=== PATIENT | female | born 1970 | race Caucasian/White ===

== ENCOUNTER 2018-07-09 14:31 | Outpatient (CLI) | payer OTHER | END 2018-07-09 14:32 | disposition home or self-care (01) | LOC: BICMAMMO 14:31 | PROVIDERS: ATTEND Family Medicine | DX: R92.0 Mammographic microcalcification found on diagnostic imaging of breast (principal); R92.1 Mammographic calcification found on diagnostic imaging of breast | CPT/HCPCS: G0279 ==

== ENCOUNTER 2018-07-23 09:29 | Outpatient (CLI) | payer OTHER ==
--- NOTE | 2018-07-23 11:01 | ULT ---
SOFT TISSUE ULTRASOUND LEFT HIP: INDICATIONS: Palpable lump with concern for lymphoma. IMPRESSION: There is a well circumscribed echogenic mass within the palpable region of interest, measuring 4.1 x 1.1 cm, that demonstrates sonographic features similar to subcutaneous fat. This is suspicious for a small intramuscular lipoma. If this is symptomatic to the patient, surgical followup is recommended . An MRI of the left hip with and without contrast could also be performed for additional characteri zation, if this is symptomatic to the patient, meaning if the patient has any difficulty with pain re lated to this lesion. POS: [facility]
== END 2018-07-23 09:30 | disposition home or self-care (01) ==
LOC: BICULT 09:29
PROVIDERS: ATTEND Family Medicine
DX: C85.90 Non-Hodgkin lymphoma, unspecified, unspecified site (principal)
CPT/HCPCS: 76999

== ENCOUNTER → 2018-08-05 | Day surgery (SDC) | payer OTHER ==
--- NOTE | 2018-08-05 11:58 | MMO ---
STEREOTACTIC GUIDED BIOPSY RIGHT BREAST MICROCALCIFICATIONS: SURGICAL SPECIMEN MAMMOGRAPHY: RIGHT DIAGNOSTIC MAMMOGRAM POST PROCEDURE: HISTORY: Abnormal mammogram. Microcalcifications. FINDINGS: After explaining the procedure and answering all questions, the patient was placed on the stereotacti c biopsy table. A lateral approach was planned. Sterile technique, buffered local anesthesia, stere otactic guidance, and a lateral approach were used to carefully advance a 10 gauge vacuum assisted ne edle to the level of microcalcification cluster within the far lateral aspect of the right breast. T he microcalcification cluster became very difficult to visualized with the stereotactic images. Posi tion was confirmed. A total of six vacuum assisted specimens were obtained and eventually submitted to pathology for eval uation. Surgical specimen mammography shows a small focus of the microcalcifications in one of the s amples. A localization clip was placed in the biopsy bed, under stereotactic guidance, and the needle was rem andrew. Review of the images showed the needle to have sampled the posterior-most portion of the micro calcification cluster. Most of the calcifications remain in the breast. Post procedure mammography shows the gas pocket and localization clip to lie immediately lateral to t he remaining calcifications. This correlates with the method of clip deployment, where the needle is withdrawn slightly before the clip is placed. The patient tolerated the procedure well and was dismissed in good condition. IMPRESSION: Technically successful stereotactic guided biopsy, right breast microcalcifications. Pathology is pe jerardoing. POS: [facility]
== END ==
LOC: MAMMO 06:44
PROVIDERS: ATTEND Family Medicine
PROC: 0HBT3ZX Excision of Right Breast, Percutaneous Approach, Diagnostic (ICD-10-PCS; principal; 2018-08-05)
DX: R92.0 Mammographic microcalcification found on diagnostic imaging of breast (principal); E03.9 Hypothyroidism, unspecified; Z79.899 Other long term (current) drug therapy
CPT/HCPCS: 19081; 76098; 88305

== ENCOUNTER 2019-02-11 09:12 | Emergency (ER) | payer OTHER ==
[2019-02-11 10:10] LABS: Hemoglobin 13.8 g/dL (12.0-16.0); Mean Corpuscular HGB CONC 33.2 g/dL (32.0-36.0); Mean Corpuscular Hemoglobin 30.7 pg (27.0-31.0); Mean Corpuscular Volume 92.6 fL (78.0-98.0); Mean Platelet Volume 8.4 fL (7.4-10.4); Platelet Count 190 thou/uL (130-400); RBC Distribution Width 12.3 % (11.5-14.5); Red Blood Cell (RBC) Count 4.48 mill/uL (4.20-5.40); White Blood Cell (WBC) Count 5.4 thou/uL (4.8-10.8)
--- NOTE | 2019-02-11 10:12 | RAD ---
Exam: Chest one view HISTORY:Cough Comparison: None FINDINGS: Cardiac silhouette: Normal Pulmonary vessels: Normal Costophrenic angles: Clear LUNGS: No masses or consolidation. There does appear to be a left paraspinal opacity, incompletely evaluated. Better interrogation with CT is recommended Pneumothorax: None Osseous abnormalities: None IMPRESSION: 1. Left paraspinal opacity, incompletely evaluated. Better interrogation with CT is recommended. Results study discussed with Dr. Houser 02/11/2019 at 10:09 AM Code CR
[2019-02-11 10:37] LABS: ALT (SGPT) 23 U/L (8-55); AST (SGOT) 25 U/L (5-34); Albumin 4.1 g/dL (3.5-5.0); Alkaline Phosphatase 68 U/L (40-150); Anion Gap 14 mmol/L (10-20); BUN (Urea Nitrogen) 13 mg/dL (7.0-18.7); Bilirubin, Total 0.5 mg/dL (0.2-1.2); Calc. Creatinine Clearance 0 mL/min (70-130); Calcium 9.5 mg/dL (7.8-10.44); Carbon Dioxide 26 mmol/L (22-29); Chloride 104 mmol/L (98-107); Estimated GFR-MDRD 81; Globulin 2.7 g/dL (2.4-3.5); Glucose 89 mg/dL (70-105); Potassium 3.5 mmol/L (3.5-5.1); Protein, Total 6.8 g/dL (6.0-8.3); Sodium 140 mmol/L (136-145)
[2019-02-11 10:43] LABS: Band 9 % (5-11); Eosinophils 1 % (0-10); Lymphocytes 19 % (21-51); MDiff Complete? YES; Monocytes 15 % (0-10); Neutrophil 55 % (42-75); Platelet Morphology Comment Appears Adequate; RBC Morphology Normal; Reactive Lymphocytes 1 % (0-10)
--- NOTE | 2019-02-11 11:01 | CT ---
Exam: Chest CT scan with IV contrast: HISTORY: Cough Abnormal finding on chest x-ray FINDINGS: No evidence for mediastinal mass or adenopathy. The linear density on the prior plain film probably r epresented superficial soft tissue. There are some additional findings, there is a 0.4 cm diameter faint groundglass opacity nodule in the right lower lobe of the lung. There is a 0.4 cm too small trip racterize low-attenuation focus in the dome of the central liver. In addition there is a 1.4 cm diameter somewhat poorly circumscribed low-attenuation density in the right lobe of the liver posteri jimena, no pleural effusion. No pericardial effusion. Other visualized upper abdomen is unremarkable. 2 small calcific foci at the age of the right lobe of the liver, chronic and may be related to old gr anulomatous disease. IMPRESSION: 0.4 cm diameter faint groundglass opacity nodule in the right lower lobe. 1.4 cm diameter poorly circ umscribed hypodensity in the right lobe of the liver, nonspecific, possibly a benign hemangioma although is not characterized adequately on this study. Small hypodensity in the dome of the liver, t oo small to characterize, possibly a cyst. Small rounded calcific focus at the edge of the liver possibly old granuloma. Findings discussed with Dr. Houser in the emergency room at 10:57 AM
[2019-02-11] MEDS ORDERED: ISOVUE-370 76%-LOCM 1 ML ONE (14:38)
== END 2019-02-11 13:20 | disposition home or self-care (01) ==
LOC: ERS 09:12
DX: R55 Syncope and collapse (principal); K76.89 Other specified diseases of liver; R91.1 Solitary pulmonary nodule; E03.9 Hypothyroidism, unspecified; I10 Essential (primary) hypertension; F17.210 Nicotine dependence, cigarettes, uncomplicated; Z79.899 Other long term (current) drug therapy; Z86.73 Personal history of transient ischemic attack (TIA), and cerebral infarction without residual deficits
CPT/HCPCS: 36415; 71045; 71260; 80053; 84484; 85025; 93005; Q9966